=== PATIENT | male | born 2000 | race Two or more races ===

== ENCOUNTER 2024-10-28 12:12 | Emergency (ER) | payer MEDICAID, OTHER ==
[~2024-10-28] VITALS: Ht 182.9 cm; Wt 82.0 kg
--- NOTE | 2024-10-28 12:51 | DVH ---
EXAM: XY L SHOULDER 2+ VIEW XRAY HISTORY: FALL COMPARISON: None TECHNIQUE: 3 views of the left shoulder were performed. FINDINGS: See below IMPRESSION: 1. Anterior dislocation of the left glenohumeral joint. 2. No fractures are identified about the left shoulder.
--- NOTE | 2024-10-28 12:52 | DVH ---
CLINICAL INDICATION: R/O DISLOCATION VS FX TECHNIQUE: 4 views of the left humerus were performed. XY L HUMERUS XRAY Comparison: Left shoulder radiographs from the same day. FINDINGS/IMPRESSION: : 1. No acute fracture of the left humerus. 2. Anterior dislocation of the left glenohumeral joint.
[2024-10-28 13:18] VITALS: TEMP 98.1
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
[2024-10-28] MEDS: ONDANSETRON HCL 4 MG/2 ML VIAL IV ONE (14:17)
[2024-10-28] MEDS: MORPHINE SULFATE 4 MG/ML SYR/VIAL IV ONE (14:22)
[2024-10-28] MEDS: KETAMINE 50mg/ML 10ml Vial (500mg/10ml) IV ONE (15:02)
[2024-10-28] MEDS ORDERED: HYDR-4902 PO (15:23)
[2024-10-28] MEDS ORDERED: IBUP-1455 PO (15:23)
--- NOTE | 2024-10-28 15:28 | DVH ---
CLINICAL INDICATION: Left SHOULDER REDUCTION TECHNIQUE: 2 radiographic views of the left shoulder were obtained. Comparison: XY L SHOULDER 2+ VIEW XRAY on DOS: 10/28/24 FINDINGS/IMPRESSION: There is no evidence of acute fracture or dislocation. The visualized joint space is well maintained. The alignment is anatomical. There is no radiopaque foreign body. HS:Y
[2024-10-28 16:16] VITALS: BP 116/63; PULSE 88; RESP 12; O2SAT 96
== END 2024-10-28 16:28 | disposition home or self-care (01) ==
LOC: ER 12:12
DX: S43.015A Anterior dislocation of left humerus, initial encounter (principal); V89.2XXA Person injured in unspecified motor-vehicle accident, traffic, initial encounter; Y93.55 Activity, bike riding; Y92.89 Other specified places as the place of occurrence of the external cause; Y99.8 Other external cause status
CPT/HCPCS: 23650; 73030; 73060; 96374; 96375; 99152; 99285; J2270; J2405; 23655